=== PATIENT | female | born 1980 | race Caucasian/White ===

== ENCOUNTER 2018-12-04 16:02 | Emergency (ER) | payer BC ==
--- NOTE | 2018-12-04 16:50 | RAD REPORT ---
EXAM DESCRIPTION: CT - Head Brain Wo Cont - 12/04/2018 4:43 pm CLINICAL HISTORY: Weakness;Visual disturbances Headache, drowsiness COMPARISON: HEAD BRAIN W O CONTRAST dated 06/25/2013 TECHNIQUE: All CT scans are performed using dose optimization technique as appropriate and may inclu de automated exposure control or mA/KV adjustment according to patient size. FINDINGS: No intracranial hemorrhage, hydrocephalus or extra-axial fluid collection.No areas of brai n edema or evidence of midline shift. The paranasal sinuses and mastoids are essentially clear. The calvarium is intact. IMPRESSION: No acute intracranial abnormality.
--- NOTE | 2018-12-04 17:27 | EKG ---
Test Date: 2018-12-04 Test Time: 16:07:16 X Ray Tech: SALINAS MEASUREMENT RESULTS: Intervals: Rate: 77 TN: 134 QRSD: 72 QT: 408 QTc: 461 [place]en: P: 70 TN: 134 QRS: 77 T: 64 INTERPRETIVE STATEMENTS: Normal sinus rhythm with sinus arrhythmia Possible Left atrial enlargement Borderline ECG Compared to ECG 07/04/2014 15:50:42 No significant changes Electronically Signed On 12-04-18 17:26:06 CDT by Aleksandr Gaviria
[2018-12-04 17:30] LABS: Absolute Lymphocytes (CBC) 2.6 K/uL (0.7-4.9); Absolute Monocytes 0.5 K/uL (0.1-1.3); Absolute Neutrophil 5.2 K/uL (1.8-8.0); Basophils % 0.9 % (0-1.3); Eosinophils % 1.6 % (0-4.4); Hematocrit 37.9 % (36.0-45.0); Lymphocytes % 30.8 % (15.3-44.8); MPV 9.1 fL (7.6-11.3); Monocytes % 5.4 % (3.3-12.3)
[2018-12-04 17:33] LABS: Barbiturates NEGATIVE (NEGATIVE); Benzodiazepines POSITIVE (NEGATIVE); Cocaine NEGATIVE (NEGATIVE); METHAMPHETAM NEGATIVE (NEGATIVE); Methadone NEGATIVE (NEGATIVE); Opiates NEGATIVE (NEGATIVE); Phencyclidine NEGATIVE (NEGATIVE); THC Cannibis NEGATIVE (NEGATIVE)
[2018-12-04 17:37] LABS: Urine Bacteria <20 /HPF (<20); Urine Culture Reflex Order NOT NEEDED; Urine RBC <5 /HPF (NONE SEEN)
[2018-12-04 17:45] LABS: Potassium 3.7 mmol/L (3.5-5.1)
--- NOTE | 2018-12-04 18:39 | EDPHYS ---
Physician Documentation [facility] Name: Phyllis Schaffer Age: 38 yrs Sex: Female : 1980 Arrival Date: 12/04/2018 Time: 16:03 Bed 8 Private MD: ED Physician Gurjit Perez HPI: 12/04 16:29 This 38 yrs old Female presents to ER via EMS with complaints of General snw Weakness. 16:29 Onset: The symptoms/episode began/occurred suddenly, at 14:00, and became persistent. snw Associated signs and symptoms: Pertinent positives: vision loss, dizziness, generalized weakness, malaise. Pt states she sat and Googled symptoms and called an ambulance. Modifying factors: The patient symptoms are alleviated by nothing. The patient has experienced similar episodes in the past, She just "toughed it out". Pt states she sees ENT and Neuro specialties. No PCP. It is unknown whether or not the patient has recently seen a physician. Historical: - Allergies: 16:22 No Known Allergies; sg - PMHx: 16:13 ADD/ADHD; Anxiety; Seizures; sg - PSHx: 16:13 Knee surgery; Appendectomy; Cholecystectomy; Hysterectomy; Carpal Tunnel Repair; sg - Immunization history:: Adult Immunizations up to date, Adult Immunizations. - Social history:: Smoking status: Patient uses tobacco products, denies chronic smoking, but will smoke occasionally, Smoking status: . - Ebola Screening: : Patient negative for fever greater than or equal to 101.5 degrees Fahrenheit, and additional compatible Ebola Virus Disease symptoms Patient denies exposure to infectious person Patient denies travel to an Ebola-affected area in the 21 days before illness onset No symptoms or risks identified at this time Patient negative for fever greater than or equal to 101.5 degrees Fahrenheit, and additional compatible Ebola Virus Disease symptoms Patient denies exposure to infectious person Patient denies travel to an Ebola-affected area in the 21 days before illness onset No symptoms or risks identified at this time. ROS: 16:26 Eyes: Negative for injury, pain, redness, and discharge, ENT: Negative for injury, snw pain, and discharge, vision loss, dizziness Neck: Negative for injury, pain, and swelling, Cardiovascular: Negative for chest pain, palpitations, and edema, Respiratory: Negative for shortness of breath, cough, wheezing, and pleuritic chest pain, Abdomen/GI: Negative for abdominal pain, nausea, vomiting, diarrhea, and constipation, Back: Negative for injury and pain, : Negative for injury, bleeding, discharge, and swelling, MS/Extremity: Negative for injury and deformity, Skin: Negative for injury, rash, and discoloration. 16:26 Constitutional: Positive for fatigue, malaise, poor PO intake. 16:26 Neuro: Positive for speech changes, tingling. Exam: 16:26 Head/Face: Normocephalic, atraumatic. Eyes: Pupils equal round and reactive to light, snw extra-ocular motions intact. Lids and lashes normal. Conjunctiva and sclera are non-icteric and not injected. Cornea within normal limits. Periorbital areas with no swelling, redness, or edema. ENT: Nares patent. No nasal discharge, no septal abnormalities noted. Tympanic membranes are normal and external auditory canals are clear. Oropharynx with no redness, swelling, or masses, exudates, or evidence of obstruction, uvula midline. Mucous membranes moist. Neck: Trachea midline, no thyromegaly or masses palpated, and no cervical lymphadenopathy. Supple, full range of motion without nuchal rigidity, or vertebral point tenderness. No Meningismus. Chest/axilla: Normal chest wall appearance and motion. Nontender with no deformity. No lesions are appreciated. Cardiovascular: Regular rate and rhythm with a normal S1 and S2. No gallops, murmurs, or rubs. Normal PMI, no JVD. No pulse deficits. Respiratory: Lungs have equal breath sounds bilaterally, clear to auscultation and percussion. No rales, rhonchi or wheezes noted. No increased work of breathing, no retractions or nasal flaring. Abdomen/GI: Soft, non-tender, with normal bowel sounds. No distension or tympany. No guarding or rebound. No evidence of tenderness throughout. Back: No spinal tenderness. No costovertebral tenderness. Full range of motion. Skin: Warm, dry with normal turgor. Normal color with no rashes, no lesions, and no evidence of cellulitis. MS/ Extremity: Pulses equal, no cyanosis. Neurovascular intact. Full, normal range of motion. 16:26 Constitutional: The patient appears alert, awake. 16:26 Neuro: Orientation: is normal, Mentation: is normal, Memory: is normal, Motor: is normal, but pt speaking in halting pattern not consistent with CVA type aphasia, Gait: not tested. 16:26 Psych: Behavior/mood is anxious, Affect is flat. Vital Signs: 16:07 BP 153 / 81; Pulse 74; Resp 17; Temp 97.2; Pulse Ox 98% on R/A; Weight 61.23 kg; sg 17:00 BP 126 / 84; Pulse 69; Resp 21; Pulse Ox 100% ; bp MDM: 16:07 Patient medically screened. snw 18:40 Data reviewed: vital signs, nurses notes. Data interpreted: Pulse oximetry: on room air snw is 100 %. Interpretation: normal. Counseling: I had a detailed discussion with the patient and/or guardian regarding: the historical points, exam findings, and any diagnostic results supporting the discharge/admit diagnosis, the presence of at least one elevated blood pressure reading (>120/80) during this emergency department visit, lab results, radiology results, the need for outpatient follow up, to return to the emergency department if symptoms worsen or persist or if there are any questions or concerns that arise at home. Special discussion: Based on the history and exam findings, there is no indication for further emergent testing or inpatient evaluation. I discussed with the patient/guardian the need to see the wind turbine technician for further evaluation of the symptoms. I discussed with the patient/guardian the need to see the ENT specialist for further evaluation of the symptoms. I discussed with the patient/guardian the need to see the neurologist for further evaluation of the symptoms. I discussed with the patient/guardian the need to see the primary care provider for further evaluation of the symptoms. 12/04 16:25 Order name: UDS; Complete Time: 17:45 snw 12/04 16:25 Order name: Urine Microscopic Only; Complete Time: 17:45 snw 12/04 16:25 Order name: CBC with Diff; Complete Time: 17:45 snw 12/04 16:25 Order name: Chem 7; Complete Time: 17:46 snw 12/04 17:14 Order name: Urine Dipstick--Ancillary (enter results) bd 12/04 17:14 Order name: Urine --Ancillary (enter results) bd 12/04 16:25 Order name: CT Head Brain wo Cont; Complete Time: 17:00 snw 12/04 16:25 Order name: Cath snw 12/04 16:25 Order name: Urine Dipstick-Ancillary (obtain specimen); Complete Time: 17:12 snw 12/04 16:25 Order name: SL; Complete Time: 17:10 snw 12/04 17:26 Order name: EKG Electrocardiogram; Complete Time: 17:26 EDMS 12/04 17:59 Order name: Misc. Order: ambulate in hallway please and need med list snw Administered Medications: No medications were administered Disposition: 12/05 07:03 Co-signature as Attending Physician, Gurjit Perez MD I agree with the assessment and raza plan of care. Disposition: 12/04/18 18:38 Discharged to Home. Impression: Malaise and fatigue, Dizziness and giddiness. - Condition is Stable. - Discharge Instructions: Dizziness, Hypertension, Fatigue, Aspirin and Your Heart. - Medication Reconciliation Form, Thank You Letter, Antibiotic Education, Prescription Opioid Use form. - Follow up: Private Physician; When: 1 - 2 days; Reason: Recheck today's complaints, Continuance of care, Re-evaluation by your physician. Follow up: Emergency Department; When: As needed; Reason: Worsening of condition. Signatures: Dispatcher [employer] Rush Henley, RN RN Gurjit Oscar MD MD cha Therrien, Shelly, MOBILE MECHANIC-C MOBILE MECHANIC-Csnw Skyler Byers RN RN bp Corrections: (The following items were deleted from the chart) 12/04 18:46 18:38 12/04/2018 18:38 Discharged to Home. Impression: Malaise and fatigue; Dizziness sg and giddiness. Condition is Stable. Discharge Instructions: Dizziness, Hypertension, Fatigue. Forms are Medication Reconciliation Form, Thank You Letter, Antibiotic Education, Prescription Opioid Use. Follow up: Private Physician; When: 1 - 2 days; Reason: Recheck today's complaints, Continuance of care, Re-evaluation by your physician. Follow up: Emergency Department; When: As needed; Reason: Worsening of condition. snw
--- NOTE | 2018-12-04 18:39 | ER ---
Nurse's Notes [facility] Name: Phyllis Schaffer Age: 38 yrs Sex: Female : 1980 Arrival Date: 12/04/2018 Time: 16:03 Bed 8 Private MD: Diagnosis: Malaise and fatigue;Dizziness and giddiness Presentation: 12/04 16:04 Presenting complaint: EMS states: pt reported left sided facial droop that she noticed sg at about 1400 today, EMS report the pt to be ambulatory at pt home and that the left sided facial droop was not noticed by them, pt did report CP upon palpation of the Right Anterior chest wall, pt denies trauma or injury to the chest, denies V/D/Fever, reports nausea. Transition of care: patient was not received from another setting of care. Onset of symptoms was December 04, 2018 at 14:00. Risk Assessment: Do you want to hurt yourself or someone else? Patient reports no desire to harm self or others. Initial Sepsis Screen: Does the patient meet any 2 criteria? No. Patient's initial sepsis screen is negative. Does the patient have a suspected source of infection? No. Patient's initial sepsis screen is negative. Care prior to arrival: Glucose check: 93. 16:04 Method Of Arrival: EMS: [facility] sg 16:04 Acuity: GINNY 3 sg Triage Assessment: 16:17 General: Appears in no apparent distress. comfortable, Behavior is cooperative, bp appropriate for age, anxious. Pain: Complains of pain in chest. Historical: - Allergies: 16:22 No Known Allergies; sg - PMHx: 16:13 ADD/ADHD; Anxiety; Seizures; sg - PSHx: 16:13 Knee surgery; Appendectomy; Cholecystectomy; Hysterectomy; Carpal Tunnel Repair; sg - Immunization history:: Adult Immunizations up to date, Adult Immunizations. - Social history:: Smoking status: Patient uses tobacco products, denies chronic smoking, but will smoke occasionally, Smoking status: . - Ebola Screening: : Patient negative for fever greater than or equal to 101.5 degrees Fahrenheit, and additional compatible Ebola Virus Disease symptoms Patient denies exposure to infectious person Patient denies travel to an Ebola-affected area in the 21 days before illness onset No symptoms or risks identified at this time Patient negative for fever greater than or equal to 101.5 degrees Fahrenheit, and additional compatible Ebola Virus Disease symptoms Patient denies exposure to infectious person Patient denies travel to an Ebola-affected area in the 21 days before illness onset No symptoms or risks identified at this time. Screenin:10 Abuse screen: Denies threats or abuse. Denies injuries from another. Nutritional sg screening: No deficits noted. Tuberculosis screening: No symptoms or risk factors identified. Never had TB. Fall Risk None identified. Assessment: 16:10 General: Appears in no apparent distress. well groomed, well developed, well nourished, sg Behavior is calm, cooperative, appropriate for age. Pain: Complains of pain in anterior aspect of right upper chest Quality of pain is described as aching. Neuro: Level of Consciousness is awake, alert, obeys commands, Oriented to person, place, time, situation, Cargo Supervisor are equal bilaterally Moves all extremities. Full function Gait is steady, Speech is normal, Facial symmetry appears normal, Reports weakness. Cardiovascular: Capillary refill is brisk in bilateral fingers Patient's skin is warm and dry. Chest pain is described as vague. Respiratory: Airway is patent Respiratory effort is even, unlabored, Respiratory pattern is regular, symmetrical, Denies cough, shortness of breath labored breathing, pain with respiration. GI: Abdomen is flat, non-distended, Reports nausea, tolerance of fluids, tolerance of food. : No signs and/or symptoms were reported regarding the genitourinary system. EENT: No signs and/or symptoms were reported regarding the EENT system. Derm: Skin is intact, is healthy with good turgor, Skin is dry, Skin is pale, Skin temperature is cool. Musculoskeletal: No signs and/or symptoms reported regarding the musculoskeletal system. Vital Signs: 16:07 BP 153 / 81; Pulse 74; Resp 17; Temp 97.2; Pulse Ox 98% on R/A; Weight 61.23 kg; sg 17:00 BP 126 / 84; Pulse 69; Resp 21; Pulse Ox 100% ; bp ED Course: 16:03 Patient arrived in ED. sg 16:06 Triage completed. sg 16:07 Ven[facility] Cordon [facility]C [facility]. snw 16:07 Gurjit Perez MD is Attending Physician. snw 16:07 Arm band placed on. sg 16:10 No provider procedures requiring assistance completed. sg 16:15 Modesta, Skyler, RN is Primary Nurse. bp 16:[address] via wheelchair. nj 16:43 CT completed. Patient tolerated procedure well. Patient moved back from CT. mn 16:43 CT Head Brain wo Cont In Process Unspecified. EDMS 17:04 Initial lab(s) drawn, by me, sent to lab. Inserted saline lock: 22 gauge in right 3 antecubital area, using aseptic technique. Blood collected. Administered Medications: No medications were administered Outcome: 18:38 Discharge ordered by . kartik 18:46 Patient left the ED. sg Signatures: Dispatcher [employer] EDMS Rush Hoff, RN RN Venita Cordon, INTAKE MAN-C INTAKE MAN-CsnMao [place] [id number] Skyler Byers, RN RN bp
[2018-12-04 19:48] LABS: Urine Blood NEGATIVE (NEG); Urine Glucose NEGATIVE (NEG); Urine Protein NEGATIVE (NEG)
[2018-12-04 19:51] VITALS: TEMP 97.2
[2018-12-04 19:52] VITALS: BP 126/84; O2SAT 100
== END 2018-12-04 18:46 | disposition home or self-care (01) ==
LOC: ER 16:02
DX: R53.81 Other malaise (principal); R53.83 Other fatigue; R42 Dizziness and giddiness
CPT/HCPCS: 36415; 70450; 80048; 80307; 81003; 81015; 81025; 85025; 93005; 99284

== ENCOUNTER 2020-12-18 11:39 | Emergency (ER) | payer BC ==
[2020-12-18 16:29] LABS: Absolute Lymphocytes (CBC) 2.8 K/uL (0.7-4.9); Hematocrit 36.2 % (36.0-45.0); Lymphocytes % 37.1 % (15.3-44.8); RBC Red Blood Cell Count 4.04 M/uL (3.86-4.86)
[2020-12-18] MEDS ORDERED: NA CHLORIDE 0.9% 1,000 ML ONE (16:30)
[2020-12-18 16:43] LABS: Bilirubin Direct 0.1 mg/dL (0-0.2); Bilirubin Total 0.4 mg/dL (0.2-1.0); Potassium 3.3 mmol/L (3.5-5.1); Protein, Total 7.5 g/dL (6.4-8.2)
[2020-12-18] MEDS ORDERED: NA CHLORIDE 0.9% 100 ML ONE (16:45)
[2020-12-18] MEDS ORDERED: CEFTRIAXONE/SWI 1gm 1 GM/10 ML SYR ONE (16:45)
[2020-12-18] MEDS ORDERED: ONDANSETRON 4 MG/2 ML VIAL ONE (16:50)
[2020-12-18 16:59] LABS: Urine Bacteria <20 /HPF (<20); Urine RBC NONE SEEN /HPF (NONE SEEN)
--- NOTE | 2020-12-18 17:41 | EDPHYS ---
Physician Documentation [facility] Name: Phyllis Schaffer Age: 40 yrs Sex: Female : 1980 Arrival Date: 12/18/2020 Time: 11:41 Bed 5 Private MD: ED Physician Marcus Palmer HPI: 12/18 17:34 This 40 yrs old Female presents to ER via Ambulatory with complaints of Flank jr8 Pain - sent by for iv antibiotics. 17:34 The patient complains of pain in the left flank. Onset: The symptoms/episode jr8 began/occurred gradually. Modifying factors: The symptoms are alleviated by nothing. the symptoms are aggravated by nothing. Associated signs and symptoms: The patient has no apparent associated signs or symptoms. Severity of pain: At its worst the pain was mild in the emergency department the pain is unchanged. The patient has not experienced similar symptoms in the past. Patient stated that she was seen in PCP office for flank pain. Had CT ordered which showed kidney infection. Was sent to ED for further evaluation and IV Abx. Historical: - Allergies: 14:26 Vancomycin; kl 14:26 Flagyl; kl 14:26 IV contrast; kl - PMHx: 14:26 ADD/ADHD; Anxiety; Seizures; c diff; kl - Immunization history:: Adult Immunizations up to date. - Social history:: Smoking status: Patient denies any tobacco usage or history of. ROS: 17:34 Eyes: Negative for injury, pain, redness, and discharge, ENT: Negative for injury, jr8 pain, and discharge, Neck: Negative for injury, pain, and swelling, Cardiovascular: Negative for chest pain, palpitations, and edema, Respiratory: Negative for shortness of breath, cough, wheezing, and pleuritic chest pain, Abdomen/GI: Negative for abdominal pain, nausea, vomiting, diarrhea, and constipation, MS/Extremity: Negative for injury and deformity, Skin: Negative for injury, rash, and discoloration, Neuro: Negative for headache, weakness, numbness, tingling, and seizure. 17:34 Back: Positive for flank pain, on the left. Exam: 17:34 Eyes: Pupils equal round and reactive to light, extra-ocular motions intact. Lids and jr8 lashes normal. Conjunctiva and sclera are non-icteric and not injected. Cornea within normal limits. Periorbital areas with no swelling, redness, or edema. ENT: Nares patent. No nasal discharge, no septal abnormalities noted. Tympanic membranes are normal and external auditory canals are clear. Oropharynx with no redness, swelling, or masses, exudates, or evidence of obstruction, uvula midline. Mucous membranes moist. Neck: Trachea midline, no thyromegaly or masses palpated, and no cervical lymphadenopathy. Supple, full range of motion without nuchal rigidity, or vertebral point tenderness. No Meningismus. Cardiovascular: Regular rate and rhythm with a normal S1 and S2. No gallops, murmurs, or rubs. Normal PMI, no JVD. No pulse deficits. Respiratory: Lungs have equal breath sounds bilaterally, clear to auscultation and percussion. No rales, rhonchi or wheezes noted. No increased work of breathing, no retractions or nasal flaring. Abdomen/GI: Soft, non-tender, with normal bowel sounds. No distension or tympany. No guarding or rebound. No evidence of tenderness throughout. Back: No spinal tenderness. No costovertebral tenderness. Full range of motion. Skin: Warm, dry with normal turgor. Normal color with no rashes, no lesions, and no evidence of cellulitis. MS/ Extremity: Pulses equal, no cyanosis. Neurovascular intact. Full, normal range of motion. Neuro: Awake and alert, GCS 15, oriented to person, place, time, and situation. Cranial nerves II-XII grossly intact. Motor strength 5/5 in all extremities. Sensory grossly intact. Cerebellar exam normal. Normal gait. Vital Signs: 12:14 BP 133 / 109; Pulse 91; Resp 18; Temp 97.8; Pulse Ox 99% ; Weight 63.5 kg; Height 5 ft. kl 1 in. (154.94 cm); Pain 10/10; 16:36 BP 143 / 91; Pulse 55; Resp 17; Pulse Ox 100% ; bp 18:00 BP 120 / 73; Pulse 56; Resp 16; Temp 98; Pulse Ox 99% ; bp 12:14 Body Mass Index 26.45 (63.50 kg, 154.94 cm) kl MDM: 15:31 Patient medically screened. jr8 17:34 Data reviewed: vital signs, nurses notes, diagnostic data from outside facility, lab jr8 test result(s), and as a result, I will discharge patient. Data interpreted: Pulse oximetry: on room air is 100 %. Interpretation: normal. Counseling: I had a detailed discussion with the patient and/or guardian regarding: the historical points, exam findings, and any diagnostic results supporting the discharge/admit diagnosis, lab results, radiology results, the need for outpatient follow up, a family practitioner, to return to the emergency department if symptoms worsen or persist or if there are any questions or concerns that arise at home. Response to treatment: the patient's symptoms have markedly improved after treatment, patient is well hydrated. 12/18 15:56 Order name: Basic Metabolic Panel; Complete Time: 17:34 bp 12/18 15:56 Order name: CBC with Diff; Complete Time: 17:34 bp 12/18 15:56 Order name: Hepatic Function; Complete Time: 17:34 bp 12/18 15:56 Order name: Lipase; Complete Time: 17:34 bp 12/18 15:56 Order name: IV Saline Lock; Complete Time: 16:05 bp 12/18 16:03 Order name: Urine Microscopic Only; Complete Time: 17:34 8 12/18 16:03 Order name: Urine Culture [facility] 12/18 15:56 Order name: Labs collected and sent; Complete Time: 16:05 bp Administered Medications: 16:20 Drug: NS 0.9% 1000 ml Route: IV; Rate: 1000 ml; Site: right jugular; bp 17:10 Follow up: IV Status: Completed infusion; IV Intake: 1000ml bp 16:20 Drug: Rocephin - (cefTRIAXone) 1 grams Route: IVPB; Infused Over: 30 mins; Site: right bp jugular; 17:10 Follow up: IV Status: Completed infusion; IV Intake: 50ml bp 17:45 Drug: Potassium Chloride 20 mEq Route: PO; bp 18:08 Follow up: Response: No adverse reaction bp Disposition: 12/18/20 17:40 Discharged to Home. Impression: Acute tubulo-interstitial nephritis. - Condition is Stable. - Discharge Instructions: Pyelonephritis, Adult. - Prescriptions for Augmentin 875- 125 mg Oral Tablet - take 1 tablet by ORAL route every 12 hours for 10 days; 20 tablet. - Medication Reconciliation Form, Thank You Letter, Antibiotic Education, Prescription Opioid Use form. - Follow up: Private Physician; When: 2 - 3 days; Reason: Recheck today's complaints, Continuance of care, Re-evaluation by your physician. - Problem is new. - Symptoms have improved. Addendum: 12/20/2020 07:19 Co-signature as Attending Physician, Marcus Palmer MD I agree with the assessment and k dr plan of care. Signatures: Dispatcher [employer] EDRaquel Robb RN RN Marcus Desai MD MD [facility] Ian Moore PA PA jr8 Skyler Byers RN RN bp Corrections: (The following items were deleted from the chart) 12/18 15:57 15:54 Urine Culture ordered. [facility] 15:57 15:55 Urine Microscopic Only ordered. [facility] 18:09 17:40 12/18/2020 17:40 Discharged to Home. Impression: Acute tubulo-interstitial bp nephritis. Condition is Stable. Forms are Medication Reconciliation Form, Thank You Letter, Antibiotic Education, Prescription Opioid Use. Follow up: Private Physician; When: 2 - 3 days; Reason: Recheck today's complaints, Continuance of care, Re-evaluation by your physician. Problem is new. Symptoms have improved. jr8
--- NOTE | 2020-12-18 17:41 | ER ---
Nurse's Notes [facility] Name: Phyllis Schaffer Age: 40 yrs Sex: Female : 1980 Arrival Date: 12/18/2020 Time: 11:41 Bed 5 Private MD: Diagnosis: Acute tubulo-interstitial nephritis Presentation: 12/18 12:14 Chief complaint: Patient states: seen by dr mariscal and was told her kidneys are infected kl pt reports bilateral flank pain. Coronavirus screen: At this time, the client does not indicate any symptoms associated with coronavirus-19. Ebola Screen: Patient negative for fever greater than or equal to 101.5 degrees Fahrenheit, and additional compatible Ebola Virus Disease symptoms. Initial Sepsis Screen: Does the patient meet any 2 criteria? No. Patient's initial sepsis screen is negative. Risk Assessment: Do you want to hurt yourself or someone else? Patient reports no desire to harm self or others. Onset of symptoms was November 29, 2020. 12:14 Method Of Arrival: Ambulatory kl 12:14 Acuity: GINNY 3 kl Triage Assessment: 12:19 General: Appears in no apparent distress. well developed, well nourished, Behavior is kl calm, cooperative. Pain: Complains of pain in flank. Historical: - Allergies: 14:26 Vancomycin; kl 14:26 Flagyl; kl 14:26 IV contrast; kl - PMHx: 14:26 ADD/ADHD; Anxiety; Seizures; c diff; kl - Immunization history:: Adult Immunizations up to date. - Social history:: Smoking status: Patient denies any tobacco usage or history of. Screenin:34 Abuse screen: Denies threats or abuse. Denies injuries from another. Nutritional bp screening: No deficits noted. Tuberculosis screening: No symptoms or risk factors identified. Fall Risk None identified. Assessment: 15:33 General: Appears in no apparent distress. comfortable, Behavior is cooperative, bp appropriate for age, anxious. Pain: Complains of pain in back. Neuro: No deficits noted. Cardiovascular: No deficits noted. Respiratory: No deficits noted. GI: No signs and/or symptoms were reported involving the gastrointestinal system. : Reports pain in bilateral flank(s). EENT: No deficits noted. Derm: No deficits noted. Musculoskeletal: No deficits noted. 16:37 Reassessment: No changes from previously documented assessment. Patient and/or family bp updated on plan of care and expected duration. Pain level reassessed. Patient is alert, oriented x 3, equal unlabored respirations, skin warm/dry/pink. IVF INFUSING. LABS PENDING. 18:07 Reassessment: PT D/C HOME AMBULATORY WITH FAMILY, DX WITH PYELONEPHRITIS. bp Vital Signs: 12:14 BP 133 / 109; Pulse 91; Resp 18; Temp 97.8; Pulse Ox 99% ; Weight 63.5 kg; Height 5 ft. kl 1 in. (154.94 cm); Pain 10/10; 16:36 BP 143 / 91; Pulse 55; Resp 17; Pulse Ox 100% ; bp 18:00 BP 120 / 73; Pulse 56; Resp 16; Temp 98; Pulse Ox 99% ; bp 12:14 Body Mass Index 26.45 (63.50 kg, 154.94 cm) ED Course: 11:41 Patient arrived in ED. aa5 12:18 Triage completed. kl 15:30 Skyler Byers, NATY is Primary Nurse. bp 15:31 Ian Moore PA is PHCP. jr8 15:31 Marcus Palmer MD is Attending Physician. jr8 15:31 Arm band placed on. bp 15:34 Patient has correct armband on for positive identification. Bed in low position. Call bp light in reach. Side rails up X2. 16:05 Inserted saline lock: 18 gauge in right EJ, using aseptic technique. Blood collected. bp 18:08 No provider procedures requiring assistance completed. IV discontinued, intact, bp bleeding controlled, No redness/swelling at site. Pressure dressing applied. Administered Medications: 16:20 Drug: NS 0.9% 1000 ml Route: IV; Rate: 1000 ml; Site: right jugular; bp 17:10 Follow up: IV Status: Completed infusion; IV Intake: 1000ml bp 16:20 Drug: Rocephin - (cefTRIAXone) 1 grams Route: IVPB; Infused Over: 30 mins; Site: right bp jugular; 17:10 Follow up: IV Status: Completed infusion; IV Intake: 50ml bp 17:45 Drug: Potassium Chloride 20 mEq Route: PO; bp 18:08 Follow up: Response: No adverse reaction bp Intake: 17:10 IV: 50ml; Total: 50ml. bp 17:10 IV: 1000ml; Total: 1050ml. bp Outcome: 17:40 Discharge ordered by MD. barrow 18:08 Discharged to home ambulatory, with family. bp 18:08 Condition: stable 18:08 Discharge instructions given to patient, Instructed on discharge instructions, follow up and referral plans. medication usage, Demonstrated understanding of instructions, follow-up care, medications, Prescriptions given X 1. 18:09 Patient left the ED. bp Signatures: Raquel Padgett RN RN Trinity Hyde RN RN aa5 Ian Moore PA PA jr8 Skyler Byers RN RN bp
[2020-12-19 04:19] VITALS: BP 120/73; TEMP 98; O2SAT 99
== END 2020-12-18 18:09 | disposition home or self-care (01) ==
LOC: ER 11:39
DX: N10 Acute pyelonephritis (principal); Z88.3 Allergy status to other anti-infective agents; Z88.8 Allergy status to other drugs, medicaments and biological substances; Z91.041 Radiographic dye allergy status
CPT/HCPCS: 96365; 87088; 85025; 87086; 80048; 36415; 80076; 81015; 83690; 99284; J0696; J7030; J2405

== ENCOUNTER 2021-01-13 17:20 | Emergency (ER) | payer SELFPAY ==
[2021-01-13 18:12] LABS: Urine Blood Negative (Negative); Urine Glucose Negative (Negative); Urine Protein Negative (Negative)
--- NOTE | 2021-01-13 23:04 | ER ---
Nurse's Notes [facility] Name: Phyllis Schaffer Age: 40 yrs Sex: Female : 1980 Arrival Date: 01/13/2021 Time: 17:22 Bed Waiting Private MD: Diagnosis: Presentation: 01/13 17:28 Chief complaint: Patient states: i just had an US done from Dr. Warner here just now. i was tw2 up here about 2 weeks ago with kidney infections. so i started to see a lavatory attendant. he ordered the US. today i have been in pain that has be doubled over in pain for the passed 2 hours. he told me to come over here to see if it is kidney stones or a kidney infection. for 8 months i have been battling kidney infections and c. diff. Coronavirus screen: nausea, Client presents with at least one sign or symptom that may indicate coronavirus-19. Standard/surgical mask placed on the client. Provider contacted for isolation considerations. Ebola Screen: Patient denies travel to an Ebola-affected area in the 21 days before illness onset. Initial Sepsis Screen: Does the patient meet any 2 criteria? No. Patient's initial sepsis screen is negative. Does the patient have a suspected source of infection? No. Patient's initial sepsis screen is negative. Risk Assessment: Do you want to hurt yourself or someone else? Patient reports no desire to harm self or others. Onset of symptoms was January 13, 2021. 17:28 Method Of Arrival: Ambulatory tw2 17:28 Acuity: GINNY 3 tw2 Triage Assessment: 17:33 General: Appears in no apparent distress. uncomfortable, slender, well groomed, tw2 Behavior is calm, cooperative, appropriate for age. Pain: Complains of pain in right low back Pain radiates to abdomen. Historical: - Allergies: 17:33 Flagyl; tw2 17:33 IV contrast; tw2 17:33 Vancomycin; tw2 17:33 Augmentin; tw2 - Home Meds: 17:33 Seroquel 200 mg Oral tab 1 tab once daily [Active]; gabapentin 400 mg oral cap 1 cap 2 tw2 times a day [Active]; - PMHx: 17:33 ADD/ADHD; Anxiety; C DIFF; Seizures; tw2 - PSHx: 17:33 Cholecystectomy; Appendectomy; Hysterectomy; left knee sx; carpal tunnel sx; tw2 - Immunization history:: Adult Immunizations. - Social history:: Smoking status: . Vital Signs: 17:28 BP 133 / 91; Pulse 82; Resp 17; Temp 98(TE); Pulse Ox 100% on R/A; Weight 68.04 kg (R); tw2 Height 5 ft. 1 in. (154.94 cm) (R); Pain 10/10; 17:28 Body Mass Index 28.34 (68.04 kg, 154.94 cm) tw2 ED Course: 17:22 Patient arrived in ED. as 17:31 Triage completed. tw2 17:34 Arm band placed on. tw2 : Varghese Paniagua MD is Attending Physician. rn : Patient's name was called from ER [employer]. No response. jb4 23: Patient's name was called from ER [employer]. No response. jb4 Administered Medications: No medications were administered Outcome: 23:03 Eloped from waiting room, before seeing physician Time discovered patient gone: January 13, jb4 2020 at 22:25 23:03 Patient left the ED. jb4 Signatures: Lorelei Adame Roman, MD MD rn Wise, Tara, RN RN tw2 Erich Willis RN RN jb4
[2021-01-13 23:19] VITALS: BP 133/91; TEMP 98; O2SAT 100
== END 2021-01-13 23:03 | disposition left against medical advice (07) ==
LOC: ER 17:20
DX: Z53.21 Procedure and treatment not carried out due to patient leaving prior to being seen by health care provider (principal)
CPT/HCPCS: 81003; 99281

== ENCOUNTER → 2023-10-25 | Emergency (ER) | payer BC ==
[~2023-10-25] MED LIST: IBUPROFEN 200 MG TAB PO ONE
--- OUTSIDE RECORDS SUMMARY | 2023-10-25 09:41 | XMS REPORT | Continuity of Care Document ---
Author Name Unknown Address [address] [place] [address] [facility] Address [address] [place] [address] Care Team Providers Care [employer] Name Role Phone Yancy Herron Attending Clinician Unavailable Encounters Start Date/Time End Date/Time Encounter Type Admission Type Attending Clinicians Care Facility Care Department Encounter ID Source 2021-10-07 13:38:44 Outpatient [facility] [id number] [facility] 2021-10-07 12:52:52 Outpatient Yancy Herron [facility] [id number] [facility]
--- NOTE | 2023-10-25 10:51 | RAD REPORT ---
EXAM DESCRIPTION: RAD - Ankle Right 3 View - 10/25/2023 10:32 am CLINICAL HISTORY: PAIN COMPARISON: No comparisons FINDINGS: No fracture or dislocation is seen. No significant soft tissue swelling. Small subchondral lucency seen along the medial talar dome is likely chronic.
--- NOTE | 2023-10-25 11:46 | EDPHYS ---
Physician Documentation [facility] Name: Phyllis Schaffer Age: 43 yrs Sex: Female : 1980 Arrival Date: 10/25/2023 Time: 09:38 Bed 12 Private MD: ED Physician Juan Luis Lockwood HPI: 10/25 10:11 This 43 yrs old Female presents to ER via Ambulatory with complaints of Ankle Injury - ms3 right. 10:11 43-year-old female with past medical history of ADD/ADHD, anxiety, C. difficile, ms3 seizures presents to the emergency department for right ankle pain after attending a [employer] class and twisting her ankle last night. Patient states she has placed ice on her ankle with improvement of her symptoms. Patient states the pain is worse with walking and drivingpushing the pedalspatient states her pain is a 7/10.. 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 Flu vaccine is not up to date. - Social history:: Smoking status: Reported history of juuling and/or vaping. ROS: 10:11 Constitutional: Negative for fever, and chills. Neck: Negative for injury, pain, and ms3 swelling, Cardiovascular: Negative for chest pain, and palpitations. Respiratory: Negative for shortness of breath, cough, wheezing, and pleuritic chest pain, Abdomen/GI: Negative for abdominal pain, nausea, vomiting, diarrhea, and constipation, 10:11 MS/extremity: Positive for pain, of the right lateral malleolus, Exam: 10:11 Constitutional: This is a well developed, well nourished patient who is awake, alert, ms3 and in no acute distress. Head/Face: Normocephalic, atraumatic. Neck: Trachea midline, no cervical lymphadenopathy. Supple, full range of motion without nuchal rigidity, or vertebral point tenderness. No Meningismus. Chest/axilla: Normal chest wall appearance and motion. Nontender with no deformity. Cardiovascular: Regular rate and rhythm with a normal S1 and S2. No gallops, murmurs, or rubs. Normal PMI, no JVD. No pulse deficits. Respiratory: Lungs have equal breath sounds bilaterally, clear to auscultation and percussion. No rales, rhonchi or wheezes noted. No increased work of breathing, no retractions or nasal flaring. Abdomen/GI: Soft, non-tender, with normal bowel sounds. No distension or tympany. No guarding or rebound. No evidence of tenderness throughout. 10:11 Musculoskeletal/extremity: Extremities: noted in the Right ankle: pain, Vital Signs: 09:46 BP 127 / 81; Pulse 79; Resp 18; Temp 97.7; Pulse Ox 100% ; Weight 61.23 kg; Height 5 ap3 ft. 1 in. ; Pain 7/10; 09:46 Body Mass Index 25.51 (61.23 kg, 154.94 cm) ap3 09:46 Pain Scale: Adult ap3 MDM: 10:10 Patient medically screened. ms3 10:11 Differential diagnosis: fracture, sprain. ms3 11:47 Data reviewed: vital signs, nurses notes, radiologic studies, and as a result, I will ms3 discharge patient. I considered the following discharge prescriptions or medication management in the emergency department Medications were administered in the Emergency Department. See MAR. Independent interpretation of the following test(s) in the Emergency Department X-Ray: My interpretation is Right ankle x-ray images reviewed by me do not reveal fracture. Counseling: I had a detailed discussion with the patient and/or guardian regarding the historical points, exam findings, and any diagnostic results supporting the discharge/admit diagnosis. 10/25 10:11 Order name: Ankle Right 3 View XRAY; Complete Time: 10:57 ms3 10/25 10:57 Order name: Aircast Ankle Splint; Complete Time: 11:33 ms3 10/25 11:33 Order name: Crutch Training; Complete Time: 11:33 ms3 Administered Medications: 11:33 Drug: Ibuprofen PO 600 mg PO once Route: PO; ap3 11:54 Follow up: Response: No adverse reaction ap3 Disposition Summary: 10/25/23 11:45 Discharge Ordered Notes: Location: Home ms3 Condition: Stable ms3 Diagnosis - Pain in left ankle and joints of left foot ms3 Followup: ms3 - With: Ronen Maddox DO - When: 2 - 3 days - Reason: Recheck today's complaints Discharge Instructions: - Discharge Summary Sheet ms3 - Musculoskeletal Pain ms3 Forms: - Medication Reconciliation Form ms3 - Thank You Letter ms3 - Antibiotic Education ms3 - Prescription Opioid Use ms3 - Patient Portal Instructions ms3 - Leadership Thank You Letter ms3 Prescriptions: - Ibuprofen 600 mg Oral Tablet - take 1 tablet ORAL route every 6 hours As needed take with food; 30 tablet; ms3 Refills: 0, Product Selection Permitted Signatures: Dispatcher [employer] Shaylee Rae RN RN ap3 Juan Luis Lockwood DO DO ms3
--- NOTE | 2023-10-25 11:46 | ER ---
Nurse's Notes [facility] Name: Phyllis Schaffer Age: 43 yrs Sex: Female : 1980 Arrival Date: 10/25/2023 Time: 09:38 Bed 12 Private MD: Diagnosis: Pain in left ankle and joints of left foot Presentation: 10/25 09:46 Chief complaint: Patient states: she feels as though she injured her right ankle ap3 yesterday during lo. patient reports her pain to be a 7/10 on the pain scale at this time. Coronavirus screen: At this time, the client does not indicate any symptoms associated with coronavirus-19. Ebola Screen: No symptoms or risks identified at this time. Initial Sepsis Screen: Does the patient meet any 2 criteria? No. Patient's initial sepsis screen is negative. Does the patient have a suspected source of infection? No. Patient's initial sepsis screen is negative. Risk Assessment: Do you want to hurt yourself or someone else? Patient reports no desire to harm self or others. Onset of symptoms was October 24, 2023. 09:46 Method Of Arrival: Ambulatory ap3 09:46 Acuity: GINNY 4 ap3 Triage Assessment: 09:47 General: Appears in no apparent distress. Behavior is calm, cooperative, appropriate ap3 for age. Pain: Complains of pain in right Achilles and right lateral malleolus Pain radiates to right leg Pain currently is 7 out of 10 on a pain scale. at worst was 10 out of 10 on a pain scale. Quality of pain is described as burning, Pain began gradually, 1 day ago. Neuro: Level of Consciousness is awake, alert, obeys commands, Oriented to person, place, time, situation, Appropriate for age. Cardiovascular: Patient's skin is warm and dry. Respiratory: Airway is patent Respiratory effort is even, unlabored, Respiratory pattern is regular, symmetrical. Musculoskeletal: Range of motion: intact in all extremities. 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 Flu vaccine is not up to date. - Social history:: Smoking status: Reported history of juuling and/or vaping. Screenin:48 [facility] ED Fall Risk Assessment (Adult) History of falling in the last 3 months, ap3 including since admission No falls in past 3 months (0 pts). Abuse screen: Denies threats or abuse. Nutritional screening: No deficits noted. Tuberculosis screening: No symptoms or risk factors identified. Vital Signs: 09:46 BP 127 / 81; Pulse 79; Resp 18; Temp 97.7; Pulse Ox 100% ; Weight 61.23 kg; Height 5 ap3 ft. 1 in. ; Pain 7/10; 09:46 Body Mass Index 25.51 (61.23 kg, 154.94 cm) ap3 09:46 Pain Scale: Adult ap3 ED Course: 09:41 Patient arrived in ED. im 09:46 Juan Luis Lockwood DO is Attending Physician. ms3 09:46 Triage completed. ap3 09:48 Arm band placed on right wrist. ap3 10:34 Ankle Right 3 View XRAY In Process Unspecified. EDMS 11:36 Ronen Maddox DO is Referral Physician. ms3 11:36 Patient has correct armband on for positive identification. Bed in low position. Call ap3 light in reach. Side rails up X 1. Pulse ox on. NIBP on. 11:36 Provided Education on: crutch walking. ap3 11:36 No provider procedures requiring assistance completed. Patient did not have IV access ap3 during this emergency room visit. Administered Medications: 11:33 Drug: Ibuprofen PO 600 mg PO once Route: PO; ap3 11:54 Follow up: Response: No adverse reaction ap3 Medication: 11:36 VIS not applicable for this client. ap3 Outcome: 11:45 Discharge ordered by MD. ms3 11:54 Discharged to home ambulatory, with crutches, ap3 11:54 Condition: good 11:54 Discharge instructions given to patient, Instructed on discharge instructions, follow up and referral plans. medication usage, crutch walking, Demonstrated understanding of instructions, follow-up care, medications, crutch walking, splint care, Prescriptions given X 1, 11:54 Patient left the ED. ap3 Signatures: Dispatcher [employer] EDShaylee Baig RN RN ap3 Juan Luis Lockwood DO DO ms3 Miranda Avendaño im
[2023-10-25 12:01] VITALS: BP 127/81; TEMP 97.7; O2SAT 100
== END ==
LOC: ER 09:38
DX: M25.571 Pain in right ankle and joints of right foot (principal); Z88.1 Allergy status to other antibiotic agents; Z88.3 Allergy status to other anti-infective agents; Z91.041 Radiographic dye allergy status